=== PATIENT | female | born 1990 | race Caucasian/White ===

== ENCOUNTER 2019-05-09 07:28 | Inpatient (IN) ==
[2019-05-09 07:53] LABS: BILIRUBIN URINE NEGATIVE (NEGATIVE); BLOOD URINE NEGATIVE (NEGATIVE); COLOR YELLOW; GLUCOSE URINE NEGATIVE (NEGATIVE); KETONE URINE NEGATIVE (NEGATIVE); LEUKOCYTES URINE LARGE (NEGATIVE); NITRITE URINE NEGATIVE (NEGATIVE); PH URINE 6.5; PROTEIN URINE NEGATIVE (NEGATIVE); SP GRAVITY URINE 1.003; TURBIDITY URINE HAZY (CLEAR); URINE SOURCE VOIDED; UROBILINOGEN URINE NORMAL (NORMAL)
[2019-05-09] MEDS ORDERED: LR 1,000 ML IV SCH ×2 (08:15→11:30)
[2019-05-09] MEDS ORDERED: TYLENOL PO ONE (08:57)
[2019-05-09] MEDS: LR 1,000 ML IV SCH ×2 (09:19→11:22)
[2019-05-09] MEDS ORDERED: TYLENOL PO PRN (11:30)
[2019-05-09] MEDS ORDERED: STADOL IV PRN (11:30)
[2019-05-09] MEDS ORDERED: REGLAN PO ONE (11:30)
[2019-05-09] MEDS ORDERED: PEPCID PO PRN (11:30)
[2019-05-09] MEDS ORDERED: SODIUM CHLORIDE 0.9% INJ SCH (11:30)
[2019-05-09] MEDS ORDERED: PEPCID IV PRN (11:30)
[2019-05-09] MEDS ORDERED: ZOFRAN IV PRN (11:30)
[2019-05-09] MEDS ORDERED: PEPCID PO ONE (11:30)
[2019-05-09] MEDS ORDERED: PITOCIN 30 UNITS/NS 30 UNIT/500 ML IV.SOLN IV SCH ×2 (11:30→13:30)
[2019-05-09] MEDS ORDERED: KEFZOL 1 GM/D5W 1 GM/50 ML IVPB IV PRN (11:30)
[2019-05-09] MEDS ORDERED: LR 500 ML IV ONE (11:30)
[2019-05-09] MEDS ORDERED: AMPICILLIN 2 GM in NS 100 ML IV ONE (11:31)
[2019-05-09] MEDS ORDERED: FENTANYL-BUPIV-NS 500 MCG-0.125% 250 ML EPIDURAL PRN (11:39)
[2019-05-09] MEDS ORDERED: NAROPIN 0.2% INJ ONE (11:45)
[2019-05-09 11:55] LABS: BASO# 0.03 X1000 (0.0-0.2); BASO% 0.3 % (0.0-0.8); EOS# 0.17 X1000 (0.0-0.7); EOS% 1.5 % (0.0-10.0); HEMATOCRIT 34.3 % (37.0-47.0); HEMOGLOBIN 11.4 g/dL (12.0-16.0); IMM GRAN# 0.09 X1000 (0.0-0.04); IMM GRAN% 0.8 % (0.0-0.5); LYMPH# 1.93 X1000 (1.2-3.4); LYMPH% 16.6 % (20.5-51.1); MCH 29.6 PG (27-31); MCHC 33.2 g/dL (33-37); MCV 89.1 FL (81-99); MONO# 0.76 X1000 (0.11-0.59); MONO% 6.6 % (1.7-9.3); MPV 12.4 FL (7.4-10.4); NEUT# 8.62 X1000 (1.4-6.5); NEUT% 74.2 % (42.2-75.2); PLT 223 X1000 (130-400); RBC 3.85 XMIL (4.2-5.4)
[2019-05-09] MEDS ORDERED: SODIUM CHLORIDE 0.9% INJ ONE (12:58)
[2019-05-09] MEDS ORDERED: PHENERGAN IV ONE (12:58)
[2019-05-09] MEDS ORDERED: BOOSTRIX VACCINE IM ONE (13:22)
[2019-05-09] MEDS ORDERED: PERI MEDS (DERMOPLAST/NUPERCAINAL/TUCKS) MISC PRN (13:22)
[2019-05-09] MEDS ORDERED: ATARAX PO PRN (13:22)
[2019-05-09] MEDS ORDERED: BENADRYL IV PRN (13:22)
[2019-05-09] MEDS ORDERED: M-M-R II VACCINE SUBQ ONE (13:22)
[2019-05-09] MEDS ORDERED: PITOCIN IM PRN (13:22)
[2019-05-09] MEDS ORDERED: HYDROXYZINE IM PRN (13:22)
[2019-05-09] MEDS ORDERED: AMBIEN PO PRN (13:22)
[2019-05-09] MEDS ORDERED: BENADRYL PO PRN (13:22)
[2019-05-09] MEDS ORDERED: PITOCIN 20 UNITS/NS 20 UNITS/1,000 ML IV.SOLN IV SCH (13:30)
[2019-05-09] MEDS ORDERED: XYLOCAINE-MPF 1% INJ ONE (13:31)
[2019-05-09 13:39] LABS: EOS 1 % (1-10); LYMPHS 16 % (21-51); MONO 4 % (1-9); SEGS 79 % (42-75)
[2019-05-09] MEDS: MOTRIN PO PRN ×2 (15:13→22:52)
[2019-05-09] MEDS ORDERED: AMPICILLIN 1 GM in NS 50 ML IV SCH (15:31)
[2019-05-09] MEDS: PERICOLACE PO SCH (22:53)
--- NOTE | 2019-05-10 01:57 | HISTORY AND PHYSICAL ---
CHIEF COMPLAINT: Uterine contractions. The patient is a G3, P1-0-1-1, at 37 weeks today, with DORIAN of 05/30/2019, based on LMP consistent with ultrasound. PAST MEDICAL HISTORY: The patient has anxiety, asthma, depression, headaches, and gestational hypertension, along with a history of gestational hypertension in previous . FAMILY HISTORY: Her brother has colon cancer. SOCIAL HISTORY: She has 1 child at home. A [id number] mom. She smokes about a half pack a day. She does not drink or use alcohol. MEDICINES: She takes a baby aspirin daily. ALLERGIES: Iodine, ondansetron, buspirone, and Levaquin. REVIEW OF SYSTEMS: Patient has significant abdominal pain with contractions. She has no other complaints in a review of 11 systems. PHYSICAL EXAMINATION: GENERAL: She is in moderate distress. CARDIAC: Heart is regular rate and rhythm. CHEST: Clear to auscultation bilaterally. ABDOMEN: Gravid prior to delivery. GENITOURINARY: She had a 4 cm cervix on presentation and progressed to 5 cm over several hours. EXTREMITIES: No edema. Nontender. ASSESSMENT/PLAN: This is a 28-year-old, 3, para 1, at 37 weeks in spontaneous labor. The patient has already delivered. She quickly progressed to 8 and then pushed the baby out a few minutes later. Please see delivery note for details. cc: David Herring DO
--- NOTE | 2019-05-10 04:08 | OPERATIVE NOTE ---
PROCEDURE DATE: 05/09/2019 DELIVERY NOTE: Ms Burks progressed quickly from 5 to 8 cm and demanded to push. Her cervix was stretchy and she pushed past the cervix and was thus completely dilated. PREOPERATIVE DIAGNOSIS: Intrauterine , spontaneous labor. POSTOPERATIVE DIAGNOSES: 1. Intrauterine , spontaneous labor. 2. Poor maternal control and effort in pushing. PROCEDURE: Vacuum-assisted delivery. SURGEONS: David Herring DO. ZIPPER JOINER: None. FINDINGS: The patient had poor maternal effort due to lack of good pain control and lack of self- control in pushing process. Otherwise, delivery went well. Baby did well. PROCEDURE NARRATIVE: The patient was complete and baby's head was in right occiput anterior position. Mother was not in very good control of her situation and demanded assistance with delivery. She was counseled about the use of a vacuum and the risks of it. The vacuum was placed as the baby's head was along the midline suture between the fontanelles. The vacuum was compressed to create a pressure in the green zone. The patient was asked to push. The head was delivered very quickly. The vacuum was removed. The right anterior shoulder was then delivered, followed by the posterior shoulder and the baby. Mouth and nose were suctioned. Cord was then stripped, clamped and cut. The baby was handed off to awaiting pediatric nurse. The placenta was then delivered by Schultze presentation. The patient had a second-degree tear, which was repaired after placement of lidocaine and in the standard fashion. ESTIMATED BLOOD LOSS: Was 200 mL. cc: David Herring DO
[2019-05-10 06:16] LABS: BASO# 0.02 X1000 (0.0-0.2); BASO% 0.2 % (0.0-0.8); EOS# 0.19 X1000 (0.0-0.7); EOS% 1.4 % (0.0-10.0); HEMATOCRIT 28.7 % (37.0-47.0); HEMOGLOBIN 9.2 g/dL (12.0-16.0); IMM GRAN# 0.06 X1000 (0.0-0.04); IMM GRAN% 0.5 % (0.0-0.5); LYMPH# 2.68 X1000 (1.2-3.4); LYMPH% 20.3 % (20.5-51.1); MCH 28.8 PG (27-31); MCHC 32.1 g/dL (33-37); MCV 89.7 FL (81-99); MONO% 6.8 % (1.7-9.3); MPV 12.1 FL (7.4-10.4); NEUT# 9.36 X1000 (1.4-6.5); NEUT% 70.8 % (42.2-75.2); PLT 194 X1000 (130-400); RDW 12.9 % (11.5-14.5); WBC 13.21 X1000 (4.8-10.8)
--- NOTE | 2019-05-10 10:25 | OB/GYN PROGRESS NOTE ---
- Roselyn Moreland was seen caring for her son. She has no complaints. Her lochia is medium in flow. She tolerates a regular diet. She is bottle feeding her son. OB Physical Exam Vital Signs - 8 hr 05/10/19 04:08 05/10/19 08:33 Temperature 97.5 F L 97.5 F L Pulse Rate 98 H 76 Respiratory Rate 18 20 Blood Pressure 138/67 125/79 O2 Sat by Pulse Oximetry 98 96 - CONSTITUTIONAL General Appearance: appears well, alert, no apparent distress - HEAD, EARS, NOSE, MOUTH & THROAT HENMT: normocephalic/atraumatic - RESPIRATORY Respiratory: lungs clear, normal breath sounds - CARDIOVASCULAR Cardiovascular: normal peripheral pulses, regular rate, rhythm - CHEST (BREASTS) Chest/Breast: deferred - GASTROINTESTINAL (ABDOMEN) Abdominal Exam: normal bowel sounds, tenderness (slight to mild in intensity upon palpation.) - MUSCULOSKELETAL Back Exam: normal inspection Extremity: non-tender, other (slight to mild B/L lower extremity edema) - SKIN Integumentary: normal color, warm/dry - NEUROLOGIC Neurologic: grossly normal - PSYCHIATRIC Psych/Mental Status: normal mood/affect, normal thought content, normal thought process Active Medications Generic Name Dose Route Start Last Admin Trade Name Freq PRN Reason Stop Dose Admin Benzocaine 1 each 05/09/19 13:22 05/09/19 16:50 Elaine Meds (Dermoplast/Nupercainal/Tucks) MISC 1 applic 3-4XDAY PRN PRN Administration episiotomy/hemorrhoids Diphenhydramine HCl 25 mg 05/09/19 13:22 Benadryl PO Q4H PRN PRN Itching Famotidine 40 mg 05/09/19 11:30 Pepcid PO Q12H PRN PRN GI upset or indigestion Hydroxyzine HCl 50 mg 05/09/19 13:22 Atarax PO Q3-4H PRN PRN Nausea Hydroxyzine HCl 50 mg 05/09/19 13:22 Hydroxyzine IM Q3-4H PRN PRN Nausea Ibuprofen 800 mg 05/09/19 13:22 05/09/19 22:52 Motrin PO 800 mg Q8H PRN PRN Administration cramping Senna/Docusate Sodium 1 each 05/09/19 21:00 05/09/19 22:53 Pericolace PO 1 each QHS AIMEE Administration Sodium Chloride 5 - 10 ml 05/09/19 11:30 Sodium Chloride 0.9% INJ DIRECTED AIMEE Zolpidem Tartrate 10 mg 05/09/19 13:22 Ambien PO HS PRN PRN Sleep Laboratory Results - last 24 hr 05/09/19 05/09/19 05/10/19 08:20 08:20 05:03 WBC 11.60 H 13.21 H RBC 3.85 L 3.20 L Hgb 11.4 L 9.2 L D Hct 34.3 L 28.7 L MCV 89.1 89.7 MCH 29.6 28.8 MCHC 33.2 32.1 L RDW Std Deviation 13.0 12.9 Plt Count 223 194 MPV 12.4 H 12.1 H Immature Gran % (Auto) 0.8 H 0.5 Neut % (Auto) 74.2 70.8 Lymph % (Auto) 16.6 L 20.3 L [place] % (Auto) 6.6 6.8 Eos % (Auto) 1.5 1.4 Baso % (Auto) 0.3 0.2 Immature Gran # (Auto) 0.09 H 0.06 H Neut # (Auto) 8.62 H 9.36 H Lymph # (Auto) 1.93 2.68 [place] # (Auto) 0.76 H 0.90 H Eos # (Auto) 0.17 0.19 Baso # (Auto) 0.03 0.02 Segmented Neutrophils 79 H Lymphocytes 16 L Monocytes 4 Eosinophils 1 RPR NON-REACTIVE OB Assessment & Plan (1) (normal spontaneous vaginal delivery) Status: Acute Plan: 1. Con't PP management 2. Probable D/C to home on tomorrow (2) Anemia Status: Acute Plan: 1. Fe2+ Supplementation (3) Rh(D) positive Status: Acute Plan: 1. No intervention
[2019-05-10] MEDS: FERROUS SULFATE PO SCH ×2 (12:00→20:06)
[2019-05-10] MEDS: MOTRIN PO PRN (15:43)
[2019-05-10] MEDS: PERICOLACE PO SCH (20:06)
[2019-05-11 08:12] VITALS: BP 123/81
--- NOTE | 2019-05-11 08:14 | OB/GYN PROGRESS NOTE ---
- Subjective Pt seen and examined. Currently w/o complaints. Ambulating and urinating without difficulty. Tolerating regular diet, denies n/v OB Physical Exam Vital Signs - 24 hr 05/10/19 08:33 05/10/19 11:50 05/10/19 15:39 Temperature 97.5 F L 98.3 F 98.1 F Pulse Rate 76 75 67 Respiratory Rate 20 20 20 Blood Pressure 125/79 136/72 124/64 O2 Sat by Pulse Oximetry 96 100 96 05/10/19 23:51 05/11/19 08:11 Temperature 97.6 F 97.3 F L Pulse Rate 77 73 Respiratory Rate 18 18 Blood Pressure 143/80 123/81 O2 Sat by Pulse Oximetry 98 100 - CONSTITUTIONAL General Appearance: appears well, alert, no apparent distress - RESPIRATORY Respiratory: chest non-tender, lungs clear - CARDIOVASCULAR Cardiovascular: regular rate, rhythm - GASTROINTESTINAL (ABDOMEN) Abdominal Exam: non tender, soft (FF belowe umbilicus) - MUSCULOSKELETAL Extremity: non-tender, no calf tenderness - PSYCHIATRIC Psych/Mental Status: normal mood/affect, oriented x 3 Active Medications Generic Name Dose Route Start Last Admin Trade Name Freq PRN Reason Stop Dose Admin Benzocaine 1 each 05/09/19 13:22 05/09/19 16:50 Elaine Meds (Dermoplast/Nupercainal/Tucks) MISC 1 applic 3-4XDAY PRN PRN Administration episiotomy/hemorrhoids Diphenhydramine HCl 25 mg 05/09/19 13:22 Benadryl PO Q4H PRN PRN Itching Famotidine 40 mg 05/09/19 11:30 Pepcid PO Q12H PRN PRN GI upset or indigestion Ferrous Sulfate 325 mg 05/10/19 11:00 05/10/19 20:06 Ferrous Sulfate PO 325 mg BID CC AIMEE Administration Hydroxyzine HCl 50 mg 05/09/19 13:22 Atarax PO Q3-4H PRN PRN Nausea Hydroxyzine HCl 50 mg 05/09/19 13:22 Hydroxyzine IM Q3-4H PRN PRN Nausea Ibuprofen 800 mg 05/09/19 13:22 05/10/19 15:43 Motrin PO 800 mg Q8H PRN PRN Administration cramping Senna/Docusate Sodium 1 each 05/09/19 21:00 05/10/19 20:06 Pericolace PO 1 each QHS AIMEE Administration Sodium Chloride 5 - 10 ml 05/09/19 11:30 Sodium Chloride 0.9% INJ DIRECTED AIMEE Zolpidem Tartrate 10 mg 05/09/19 13:22 Ambien PO HS PRN PRN Sleep Laboratory Last Values WBC 13.21 X1000 (4.8-10.8) H 05/10/19 05:03 RBC 3.20 XMIL (4.2-5.4) L 05/10/19 05:03 Hgb 9.2 g/dL (12.0-16.0) L D 05/10/19 05:03 Hct 28.7 % (37.0-47.0) L 05/10/19 05:03 MCV 89.7 FL (81-99) 05/10/19 05:03 MCH 28.8 PG (27-31) 05/10/19 05:03 MCHC 32.1 g/dL (33-37) L 05/10/19 05:03 RDW Std Deviation 12.9 % (11.5-14.5) 05/10/19 05:03 Plt Count 194 X1000 (130-400) 05/10/19 05:03 MPV 12.1 FL (7.4-10.4) H 05/10/19 05:03 Immature Gran % (Auto) 0.5 % (0.0-0.5) 05/10/19 05:03 Neut % (Auto) 70.8 % (42.2-75.2) 05/10/19 05:03 Lymph % (Auto) 20.3 % (20.5-51.1) L 05/10/19 05:03 [place] % (Auto) 6.8 % (1.7-9.3) 05/10/19 05:03 Eos % (Auto) 1.4 % (0.0-10.0) 05/10/19 05:03 Baso % (Auto) 0.2 % (0.0-0.8) 05/10/19 05:03 Immature Gran # (Auto) 0.06 X1000 (0.0-0.04) H 05/10/19 05:03 Neut # (Auto) 9.36 X1000 (1.4-6.5) H 05/10/19 05:03 Lymph # (Auto) 2.68 X1000 (1.2-3.4) 05/10/19 05:03 [place] # (Auto) 0.90 X1000 (0.11-0.59) H 05/10/19 05:03 Eos # (Auto) 0.19 X1000 (0.0-0.7) 05/10/19 05:03 Baso # (Auto) 0.02 X1000 (0.0-0.2) 05/10/19 05:03 Segmented Neutrophils 79 % (42-75) H 05/09/19 08:20 Lymphocytes 16 % (21-51) L 05/09/19 08:20 Monocytes 4 % (1-9) 05/09/19 08:20 Eosinophils 1 % (1-10) 05/09/19 08:20 Urine Source VOIDED 05/09/19 07:34 Urine Color YELLOW 05/09/19 07:34 Urine Turbidity HAZY (CLEAR) 05/09/19 07:34 Urine pH 6.5 05/09/19 07:34 Ur Specific [place] 1.003 05/09/19 07:34 Urine Protein NEGATIVE mg/dL (NEGATIVE) 05/09/19 07:34 Ur Glucose (Stick) NEGATIVE mg/dL (NEGATIVE) 05/09/19 07:34 Ur Ketones (Stick) NEGATIVE mg/dL (NEGATIVE) 05/09/19 07:34 Urine Blood NEGATIVE (NEGATIVE) 05/09/19 07:34 Urine Nitrite NEGATIVE (NEGATIVE) 05/09/19 07:34 Urine Bilirubin NEGATIVE (NEGATIVE) 05/09/19 07:34 Urobilinogen Dipstick NORMAL mg/dL (NORMAL) 05/09/19 07:34 Urine Leukocytes LARGE (NEGATIVE) A 05/09/19 07:34 RPR NON-REACTIVE (NONREACTIVE) 05/09/19 08:20 OB Assessment & Plan (1) Vacuum extractor delivery, delivered Status: Resolved Plan: -Con't routine PP care -Reg diet -Pain well controlled -OOB to ambulation -plan for d/c home today
[2019-05-11] MEDS: FERROUS SULFATE PO SCH (08:16)
[2019-05-11] MEDS: MOTRIN PO PRN (09:32)
== END 2019-05-11 12:10 | disposition home or self-care (01) | DRG 807 ==
LOC: OPLD 07:28 → LD 07:31
PROVIDERS: ADMIT Obstetrics & Gynecology; ATTEND Obstetrics & Gynecology